=== PATIENT | female | born 1960 | race Caucasian/White ===

== ENCOUNTER → 2017-11-22 | Outpatient (CLI) | payer OTHER ==
--- NOTE | 2017-11-24 08:41 | MM ---
Reason for exam: screening (asymptomatic). Last mammogram was performed 1 year and 7 months ago. History: Patient is postmenopausal. Family history of breast cancer in maternal aunt at age 64. Physical Findings: A clinical breast exam by your physician is recommended on an annual basis and results should be correlated with mammographic findings. MG Screening Mammo w CAD Bilateral CC and MLO view(s) were taken. Prior study comparison: April 21, 2016, bilateral MG screening mammo w CAD. September 14, 2014, bilateral MG screening mammo w CAD. The breast tissue is heterogeneously dense. This may lower the sensitivity of mammography. No significant changes when compared with prior studies. ASSESSMENT: Benign, BI-RAD 2 RECOMMENDATION: Routine screening mammogram of both breasts in 1 year.
== END | disposition home or self-care (01) ==
LOC: RADMAMWWP 08:47
PROVIDERS: ATTEND Obstetrics & Gynecology
DX: Z12.31 Encounter for screening mammogram for malignant neoplasm of breast (principal)
CPT/HCPCS: 77067

== ENCOUNTER → 2020-10-31 | Outpatient (CLI) | payer OTHER ==
--- NOTE | 2020-10-31 13:06 | US ---
EXAMINATION TYPE: US thyroid st tissue head/neck DATE OF EXAM: 10/31/2020 COMPARISON: NONE CLINICAL HISTORY: 60-year-old female E03.9 HYPOTHYROIDISM. TECHNIQUE: Multiple sonographic images of the thyroid gland are obtained. FINDINGS: GLAND SIZE: Right Lobe: 4.6 x 1.6 x 1.2 cm Overall Parenchyma: heterogenous Left Lobe: 4.1 x 1.4 x 1.3 cm Overall Parenchyma: heterogeneous Isthmus Thickness: 0.3 cm NODULES RIGHT: # of nodules measured on right: 1 1. 0.5 X 0.5 x 0.4 cm solid or almost completely solid, hyperechoic nodule, which is wider than lucila l, with smooth margins, without echogenic foci. Prior size: No previous LEFT: # of nodules measured on left: 0 ISTHMUS: # of nodules measured in the isthmus: 0 Bilateral neck scanned, no evidence of lymphadenopathy. IMPRESSION: 1. Heterogeneous thyroid gland could reflect sequela of chronic hypothyroidism, thyroiditis, or goite r. 2. A solitary 5 mm TR 3 nodule on the right for which follow-up is recommended if it measures more th an 1.5 cm. Questionable clinical significance.
== END | disposition home or self-care (01) ==
LOC: RADUSWWP 09:30
PROVIDERS: ATTEND Family Medicine
DX: E03.9 Hypothyroidism, unspecified (principal)
CPT/HCPCS: 76536

== ENCOUNTER → 2020-12-05 | Outpatient (CLI) | payer OTHER ==
--- NOTE | 2020-12-05 10:51 | ECHOF ---
Referral Reason:R03.2 palpitations MEASUREMENTS -------- HEIGHT: 180.3 cm WEIGHT: 86.2 kg BP: RVIDd: 3.0 cm (< 3.3) IVSd: 0.7 cm (0.6 - 1.1) LVIDd: 4.1 cm (3.9 - 5.3) LVPWd: 1.1 cm (0.6 - 1.1) IVSs: 1.3 cm LVIDs: 1.7 cm LVPWs: 1.7 cm LAESV Index (A-L): 30.19 ml/m Ao Diam: 2.5 cm (2.0 - 3.7) AV Cusp: 1.9 cm (1.5 - 2.6) LA Diam: 3.2 cm (2.7 - 3.8) MV EXCURSION: 17.007 mm (> 18.000) MV EF SLOPE: 101 mm/s (70 - 150) EPSS: 0.7 cm MV E Scottie: 0.87 m/s MV DecT: 211 ms MV A Scottie: 1.00 m/s MV E/A Ratio: 0.87 RAP: 5.00 mmHg RVSP: 10.50 mmHg FINDINGS -------- This was a technically good study. The left ventricular size is normal. Left ventricular wall thickness is normal. Overall left vent ricular systolic function is normal with, an EF between 55 - 60 %. The diastolic filling pattern is normal for the age of the patient 14.06. The right ventricle is normal in size. LA is midly dilated 29-33ml/m2. The right atrial size is normal. There is a dropout seen in the septum. The aortic valve is trileaflet and appears structurally normal. The mitral valve is normal. Mild mitral regurgitation is present. Cannot exclude mitral valve pro lapse. The tricuspid valve appears structurally normal. Mild tricuspid regurgitation present. Right vent ricular systolic pressure is normal at < 35 mmHg. There is no pulmonic regurgitation present. The aortic root size is normal. Normal inferior vena cava with normal inspiratory collapse consistent with estimated right atrial pre ssure of 5 mmHg. There is no pericardial effusion. CONCLUSIONS -------- 1. The left ventricular size is normal. 2. Left ventricular wall thickness is normal. 3. Overall left ventricular systolic function is normal with, an EF between 55 - 60 %. 4. The diastolic filling pattern is normal for the age of the patient 14.06 5. LA is midly dilated 29-33ml/m2. 6. There is a dropout seen in the septum. 7. Mild mitral regurgitation is present. 8. Cannot exclude mitral valve prolapse. 9. Mild tricuspid regurgitation present. 10. There is no pericardial effusion. GEOPHYSICAL PROSPECTOR: Tish Sheppard RDCS
== END | disposition home or self-care (01) ==
LOC: RADECHMAIN 07:57
PROVIDERS: ATTEND Family Medicine
DX: I08.1 Rheumatic disorders of both mitral and tricuspid valves (principal)
CPT/HCPCS: 93005; 93306

== ENCOUNTER → 2021-08-14 | Outpatient (CLI) | payer OTHER ==
--- NOTE | 2021-08-14 09:37 | US ---
EXAMINATION TYPE: US abdomen complete DATE OF EXAM: 08/14/2021 COMPARISON: NONE CLINICAL HISTORY: R10.13 EPI PAIN. EXAM MEASUREMENTS: Liver Length: 14.8 cm Gallbladder Wall: 0.2 cm CBD: 0.5 cm Spleen: 9.7 cm Right Kidney: 11.7 x 3.9 x 5.0 cm Left Kidney: 10.3 x 5.2 x 5.5 cm Pancreas: wnl as seen Liver: wnl Gallbladder: Multiple echogenic foci with posterior shadowing; FRIEDA Evidence for sonographic Hudson's sign: No CBD: wnl Spleen: wnl Right Kidney: Anechoic focus superior pole 1.1 x 1.1 x 1.1 cm Left Kidney: wnl Upper IVC: wnl Abd Aorta: wnl The intrahepatic portion of the IVC and proximal abdominal aorta are within normal limits. Common bi le duct is unremarkable. The visualized portions of the pancreas are homogenous. The spleen is unre markable. Kidneys are symmetric and free of hydronephrosis. IMPRESSION: 1. Uncomplicated cholelithiasis. 2. Right renal cystic lesion.
--- NOTE | 2021-08-14 09:41 | US ---
EXAMINATION TYPE: US thyroid st tissue head/neck DATE OF EXAM: 08/14/2021 COMPARISON: US 10/31/2020 CLINICAL HISTORY: E04.1 THYROID NODULE. Hx of hypothyroidism GLAND SIZE: Right Lobe: 4.2 x 1.2 x 1.8 cm Overall Parenchyma: heterogenous Left Lobe: 3.9 x 1.2 x 1.2 cm Overall Parenchyma: heterogeneous Isthmus Thickness: 0.2 cm NODULES RIGHT: # of nodules measured on right: 1 1. 0.5 X 0.3 x 0.5 cm solid or almost completely solid, hyperechoic nodule, which is wider than lucila l, with smooth margins, without echogenic foci. Prior size: 0.5 x 0.4 x 0.5 cm LEFT: # of nodules measured on left: 0 ISTHMUS: # of nodules measured in the isthmus: 0 Bilateral neck scanned, few lymph nodes seen left lateral neck; largest measuring 1.6 x 0.7 x 0.7 cm. IMPRESSION: Stable nonspecific solid nodule right thyroid lobe.
== END | disposition home or self-care (01) ==
LOC: RADUSWWP 08:08
PROVIDERS: ATTEND Family Medicine
DX: K80.20 Calculus of gallbladder without cholecystitis without obstruction (principal); E04.1 Nontoxic single thyroid nodule; N28.89 Other specified disorders of kidney and ureter
CPT/HCPCS: 76536; 76700

== ENCOUNTER → 2022-12-23 | Outpatient (CLI) | payer BC, MEDICARE ==
--- NOTE | 2022-12-23 09:27 | US ---
EXAMINATION TYPE: US thyroid st tissue head/neck DATE OF EXAM: 12/23/2022 COMPARISON: US 2020 CLINICAL HISTORY: E04.2 NONTOXIC MULTINODULAR GOITER. GLAND SIZE: Right Lobe: 4.0 x 1.5 x 1.7 cm Overall Parenchyma: heterogenous Left Lobe: 4.1 x 1.5 x 1.3 cm Overall Parenchyma: heterogeneous Isthmus Thickness: 0.2 cm NODULES RIGHT: # of nodules measured on right: 1 1. 0.5 X 0.3 x 0.6 cm, lower mid, solid or almost completely solid, hyperechoic nodule, which is wi aramis than tall, with smooth margins, without echogenic foci. Prior size: 0.5 x 0.3 x 0.5 cm LEFT: # of nodules measured on left: 0 ISTHMUS: # of nodules measured in the isthmus: 0 Bilateral neck scanned, no evidence of lymphadenopathy. IMPRESSION: 1. Stable diffusely heterogenous thyroid gland which again may represent sequelae of chronic hyperth yroidism, thyroiditis or goiter. 2. Stable solitary 5 mm TR 3 right thyroid lobe nodule. No follow-up is recommended based on ACR TI- RADS based on size.
== END | disposition home or self-care (01) ==
LOC: RADUSWWP 08:44
PROVIDERS: ATTEND Family Medicine
DX: E04.2 Nontoxic multinodular goiter (principal)
CPT/HCPCS: 76536

== ENCOUNTER → 2023-06-16 | Outpatient (CLI) | payer MEDICARE, BC ==
--- NOTE | 2023-06-17 09:32 | MM ---
Reason for Exam: Screening (asymptomatic). Last mammogram was performed 5 year(s) and 7 month(s) ago. Patient History: Menarche at age 10. First Full-Term at age 14. Postmenopausal. Maternal aunt had breast cancer, age 64. Risk Values: Miranda 5 year model risk: 1.2%. NCI Lifetime model risk: 4.6%. Prior Study Comparison: 05/02/2012 Bilateral Screening Mammogram, [facility]. 08/09/2013 Bilateral Screening Mammogram, [facility]. 09/14/2014 Bilateral Screening Mammogram, [facility]. 04/21/2016 Bilateral Screening Mammogram, [facility]. 11/22/2017 Bilateral Screening Mammogram, [facility]. Tissue Density: The breast tissue is heterogeneously dense. This may lower the sensitivity of mammography. Findings: Analyzed By CAD. There is no suspicious group of microcalcifications or new suspicious mass in either breast. Overall Assessment: Negative, BI-RAD 1 Management: Screening Mammogram of both breasts in 1 year. . Patient should continue monthly self-breast exams. A clinical breast exam by your physician is recommended on an annual basis. This exam should not preclude additional follow-up of suspicious palpable abnormalities. Note on Miranda scores and lifetime risk: 1. A Miranda score greater than 3% is considered moderate risk. If this is the case, consider specialist referral to assess eligibility for a risk reducing agent. 2. If overall lifetime risk for the development of breast cancer is 20% or higher, the patient may qualify for future screening with alternating mammogram and breast MRI. Electronically signed and approved by: Kevan Jalloh M.D. Radiologis
== END | disposition home or self-care (01) ==
LOC: RADMAMWWP 09:04
PROVIDERS: ATTEND Family Medicine
DX: Z12.31 Encounter for screening mammogram for malignant neoplasm of breast (principal); Z78.0 Asymptomatic menopausal state; Z80.3 Family history of malignant neoplasm of breast
CPT/HCPCS: 77067

== ENCOUNTER → 2023-09-20 | Outpatient (CLI) | payer MEDICARE ==
--- NOTE | 2023-09-20 12:17 | XR ---
EXAMINATION TYPE: XR knee complete RT DATE OF EXAM: 09/20/2023 COMPARISON: None HISTORY: Pain felt a pop TECHNIQUE: 3 view right knee FINDINGS: There is calcification within the anterior lateral joint space. This is smooth bordered adrian ears to be chronic. No joint effusion is evident. No acute fracture or dislocation is evident. Joint spaces appear preserved. Anterior superior patella r spurring is present Follow up exams can be performed 7-10 days from acute trauma for continued pain. MRI can be performed if evaluation of the soft tissues would be of benefit. IMPRESSION: 1. No acute osseous abnormality right knee
== END | disposition home or self-care (01) ==
LOC: RADXRMAIN 11:21
PROVIDERS: ATTEND Family Medicine
DX: M25.561 Pain in right knee (principal)

== ENCOUNTER → 2023-10-04 | Outpatient (CLI) | payer MEDICARE ==
--- NOTE | 2023-10-04 17:55 | BD ---
EXAMINATION TYPE: Axial Bone Density DATE OF EXAM: 10/04/2023 CLINICAL HISTORY: 63 years old Female. ICD-10 CODE: Z78.0 POSTMENOPAUSAL Height: 5 ft 8 in Weight: 195 FRAX RISK QUESTIONS: Alcohol (3 or more units per day): no Family History (Parent hip fracture): no Glucocorticoids (More than 3mos): no (Ex: prednisone, prednisolone, methylprednisolone, dexamethasone, and hydrocortisone). History of Fracture in Adulthood: no Secondary Osteoporosis: 1. Type 1 Diabetes: no 2. Hyperthyroidism: no 3. Menopause before 45: no 4. Malnutrition: no 5. Chronic liver disease: no Rheumatoid Arthritis: no Current Tobacco Use: no RISK FACTORS HISTORY OF: Surgery to Spine/Hip(right/left)/Wrist (right/left): no MEDICATIONS: Thyroid Medications: none Osteoporosis Medications: EXAM MEASUREMENTS: Bone mineral densitometry was performed using the [employer] System. Bone mineral density as measured about the Lumbar spine is: ----- L1-L4(G/cm2): 1.071 T Score Values are as follows: ----- L1: -1.8 ----- L2: -0.8 ----- L3: -0.6 ----- L4: -0.8 ----- L1-L4: -0.9 Z Score Values are as follows: ----- L1: -1.0 ----- L2: 0.0 ----- L3: 0.2 ----- L4: 0.0 ----- L1-L4: -0.1 baseline Bone mineral density about the R hip (g/cm2): 0.721 Bone mineral density about the L hip (g/cm2): 0.794 T Score values are as follows: -----R Neck: -2.3 -----L Neck: -1.8 -----R Total: -1.4 -----L Total: -1.1 Z Score values are as follows: -----R Neck: -1.3 -----L Neck: -0.8 -----R Total: -0.8 -----L Total: -0.5 baseline FRAX%s: The graph provided illustrates a 11.9 % chance for a major osteoporotic fx and a 2.2 % chanc e for the hips probability for fx in 10 years time. IMPRESSION: Osteopenia (T Score between -2.5 and -1). There is slightly increased risk of fracture and the patient may be considered for treatment. Re-Screen 2-5 years. NOTE: T-SCORE=SD OF THE YOUNG ADULT MEAN.
== END | disposition home or self-care (01) ==
LOC: RADBDWWP 09:00
PROVIDERS: ATTEND Family Medicine
DX: M85.89 Other specified disorders of bone density and structure, multiple sites (principal); Z78.0 Asymptomatic menopausal state
CPT/HCPCS: 77080

== ENCOUNTER → 2024-12-18 | Outpatient (CLI) | payer MEDICARE ==
--- NOTE | 2024-12-18 08:55 | MM ---
Reason for Exam: Screening (asymptomatic). Last mammogram was performed 1 year(s) and 6 month(s) ago. Patient History: Menarche at age 10. First Full-Term at age 14. Postmenopausal. Maternal aunt had breast cancer, age 64. Risk Values: Miranda 5 year model risk: 1.2%. NCI Lifetime model risk: 4.4%. Prior Study Comparison: 04/21/2016 Bilateral Screening Mammogram, [facility]. 11/22/2017 Bilateral Screening Mammogram, [facility]. 06/16/2023 Bilateral MG screening mammo w CAD, [facility]. Tissue Density: The breasts are heterogeneously dense, which may obscure small masses. Findings: Analyzed By CAD. There is no suspicious group of microcalcifications or new suspicious mass in either breast. Overall Assessment: Negative, BI-RAD 1 Management: Screening Mammogram of both breasts in 1 year. Patient should continue monthly self-breast exams. A clinical breast exam by your physician is recommended on an annual basis. This exam should not preclude additional follow-up of suspicious palpable abnormalities. Note on Miranda scores and lifetime risk: 1. A Miranda score greater than 3% is considered moderate risk. If this is the case, consider specialist referral to assess eligibility for a risk reducing agent. 2. If overall lifetime risk for the development of breast cancer is 20% or higher, the patient may qualify for future screening with alternating mammogram and breast MRI. [facility], , 12/18/2024 8:47 AM. Electronically signed and approved by: Nguyen Thurman M.D. Radiologist
== END | disposition home or self-care (01) ==
LOC: RADMAMWWP 08:30
PROVIDERS: ATTEND Family Medicine
DX: Z12.31 Encounter for screening mammogram for malignant neoplasm of breast (principal); R92.333 Mammographic heterogeneous density, bilateral breasts; Z78.0 Asymptomatic menopausal state; Z80.3 Family history of malignant neoplasm of breast
CPT/HCPCS: 77063; 77067